=== PATIENT | male | born 1945 | race Caucasian/White ===

== ENCOUNTER 2017-01-04 20:23 | Inpatient (IN) | payer MEDICARE, BC ==
[~2017-01-04] VITALS: Ht 175.3 cm; Wt 114.8 kg
[2017-01-04 21:14] LABS: BASOPHILS % (AUTO) 0.9 % (0.0-2.0); EOSINOPHILS % (AUTO) 0.8 % (0.0-3.0); LYMPHOCYTES % (AUTO) 27.1 % (20.0-45.0); MEAN CORPUSCULAR HEMOGLOBIN 28.4 PG (27.0-31.0); MEAN CORPUSCULAR HGB CONC 32.4 G/DL (32.0-36.0); MEAN CORPUSCULAR VOLUME 88 FL (80-99); MEAN PLATELET VOLUME 8.2 FL (6.5-10.1); MONOCYTES % (AUTO) 11.1 % (1.0-10.0); PLATELET COUNT 154 K/UL (150-450); RED CELL DISTRIBUTION WIDTH 13.9 % (11.6-14.8); WHITE BLOOD COUNT 6.7 K/UL (4.8-10.8)
[2017-01-04 21:24] VITALS: BP 126/62
[2017-01-04 21:34] LABS: ALANINE AMINOTRANSFERASE 17 U/L (3-41); ALBUMIN/GLOBULIN RATIO 1.7 (1.0-2.7); ASPARTATE AMINO TRANSFERASE 24 U/L (5-40); CALCIUM 8.9 mg/dL (8.6-10.2); CARBON DIOXIDE 19 mEQ/L (20-30); CREATININE 1.2 mg/dL (0.7-1.2); HEMOLYSIS 6; TOTAL PROTEIN 6.6 g/dL (6.6-8.7)
[2017-01-04 21:35] LABS: ANION GAP 22 (5-15); CHLORIDE 101 mEQ/L (98-107); POTASSIUM 3.6 mEQ/L (3.4-4.9); SODIUM 142 mEQ/L (135-145); TROPONIN I < 0.30 ng/mL (<=0.30)
[2017-01-04 21:45] LABS: CKMB 3.2 ng/mL (< 6.7)
--- NOTE | 2017-01-04 23:07 | Emergency Room Report ---
History of Present Illness General Chief Complaint: General Complaint Source: Patient, Family Member, EMS Present Illness HPI 71 YOM BIBEMS with "new onset atrial fib and possible OD." However, when I saw patient and family, they endorse slurred speech at 730pm at dinner. Episode lasted "a few minutes." There was no facial droop or extremity weakness. No previous CVA, AMI. History of HTN, HLD. Has had DVT previously, used to be on xarelto. Doesnt taking ASA currently.Denies chest pain, SOB, abd pain, extremity weakness currently. 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 patient not sure if he has Atrial Fib , doesnt believe so. Has known PVD, ulcerations/shiny hairless lower extremities. Takes lasix for peripheral edema - denies history of CHF/ Allergies: Coded Allergies: No Known Allergies (Unverified , 01/04/17) Patient History Past Medical History: HTN, other - HLD Past Surgical History: none Pertinent Family History: none Social History: Denies: alcohol use, drug use, smoking Immunizations: UTD Reviewed Nursing Documentation: PMH: Agreed, PSxH: Agreed Nursing Documentation-PMH Past Medical History: No Stated History Review of Systems All Other Systems: negative except mentioned in HPI Physical Exam Vital Signs Date Time Temp Pulse Resp B/P Pulse Ox O2 Delivery O2 Flow Rate FiO2 01/04/17 20:23 69 16 126/62 98 Room Air 01/04/17 21:24 98.0 Sp02 EP Interpretation: reviewed, normal General Appearance: normal inspection, well appearing, no apparent distress, alert, GCS 15, non-toxic Head: normocephalic, atraumatic Eyes: bilateral eye EOMI, bilateral eye PERRL ENT: normal ENT inspection, hearing grossly normal, normal voice Neck: normal inspection, full range of motion, supple, no bony tend Respiratory: normal inspection, lungs clear, normal breath sounds, no respiratory distress, no retraction, no wheezing Cardiovascular #1: regular rate, rhythm, no edema Gastrointestinal: normal inspection Genitourinary: no CVA tenderness Musculoskeletal: normal inspection, back normal, normal range of motion, Adonay' s Sign negative Neurologic: normal inspection, alert, oriented x3, responsive, 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 Multiple areas of skin breakdown Medical Decision Making Diagnostic Impression: Primary Impression: Slurred speech Additional Impressions: Altered mental status Qualified Codes: R41.82 - Altered mental status, unspecified Atrial fibrillation Qualified Codes: I48.91 - Unspecified atrial fibrillation ER Course 71 YO M with ?new onset Atrial fib with ?TIA, now resolved. NIHSS 0. VSS. Afebrile. ECG is Atrial fib, RBBB labs: no leuks. H&H stable. Troponin 0. CXR normal CT Head: Endorsed to Dr Thomason for Dr Lopez for admission for new onset Atrial fib, TIA , secondary CVA prevention at 1127pm ASA given in ED Lipid panel pending EKG Diagnostic Results Rate: other - Atrial fib ST Segments: no acute changes ASA given to the pt in ED: No Rhythm Strip Diag. Results EP Interpretation: yes Rate: 73 Rhythm: no PVC's, no ectopy, other - Atrial fib Chest X-Ray Diagnostic Results EP Interpretation: Yes Findings: no consolidation, no effusion, no pneumothorax, no acute cardiopulmonary disease Number of Views: 1 Last Vital Signs Date Time Temp Pulse Resp B/P Pulse Ox O2 Delivery O2 Flow Rate FiO2 01/04/17 21:24 98.0 65 16 126/62 98 Room Air Status: improved Disposition: ADMITTED INPATIENT Condition: Serious Referrals: NON PHYSICIAN (PCP) CARL RIVERO M.D. Jan 04, 2017 23:07
[2017-01-04 23:30] VITALS: BP 147/84
[2017-01-04 23:45] LABS: CHOLESTEROL/HDL RATIO 3.7 (3.3-4.4)
[2017-01-04] MEDS ORDERED: Aspirin Baby 81mg ORAL ONE (23:45)
[2017-01-05] VITALS (8 sets, daily range): BP systolic 79–160; BP diastolic 79–99
[2017-01-05] MEDS ORDERED: Morphine Sulfate 4mg/ml Inj IVP ONE
[2017-01-05] MEDS ORDERED: Norco 5mg/325mg tab ORAL PRN (02:45)
[2017-01-05] MEDS ORDERED: Heparin 25,000u/D5W 500ml 500 ML IV SCH ×3 (02:45→04:34)
[2017-01-05 03:22] LABS: EOSINOPHILS % (AUTO) 1.1 % (0.0-3.0); LYMPHOCYTES % (AUTO) 32.2 % (20.0-45.0); MEAN CORPUSCULAR HEMOGLOBIN 27.9 PG (27.0-31.0); MEAN CORPUSCULAR VOLUME 87 FL (80-99); MEAN PLATELET VOLUME 8.4 FL (6.5-10.1); MONOCYTES % (AUTO) 7.1 % (1.0-10.0); NEUTROPHILS % (AUTO) 58.6 % (45.0-75.0); PLATELET COUNT 136 K/UL (150-450); RED BLOOD COUNT 4.82 M/UL (4.70-6.10); RED CELL DISTRIBUTION WIDTH 13.9 % (11.6-14.8); WHITE BLOOD COUNT 5.1 K/UL (4.8-10.8)
[2017-01-05] MEDS: Norco 10mg/325mg tab ORAL PRN ×4 (03:48→21:58)
[2017-01-05 03:54] LABS: TROPONIN I < 0.30 ng/mL (<=0.30)
[2017-01-05] MEDS ORDERED: Heparin 5000 units/ml inj IV ONE (04:15)
[2017-01-05] MEDS ORDERED: Aspirin Baby 81mg ORAL SCH (09:00)
[2017-01-05] MEDS ORDERED: Pneumococcal Vaccine 25mcg/0.5ml IM ONE (09:00)
[2017-01-05 09:47] LABS: TROPONIN I < 0.30 ng/mL (<=0.30)
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
--- NOTE | 2017-01-05 11:18 | Diagnostic Imaging Report ---
Indication: Chest pain Technique: One view of the chest Comparison: none Findings: The heart is borderline enlarged. Lungs and pleural spaces are clear Impression: Borderline cardiomegaly. No acute process
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
[2017-01-05] MEDS ORDERED: Eliquis 2.5mg tablet ORAL SCH (12:00)
[2017-01-05 12:20] LABS: HEMOGLOBIN A1C 5.4 % (< 6.0)
[2017-01-05 12:28] LABS: THYROID STIMULATING HORMONE 3.3 uIU/mL (0.300-4.500)
--- NOTE | 2017-01-05 12:43 | Diagnostic Imaging Report ---
APPROVED REPORT CPT Code: 10923 Symptoms Non-healing Ulcer : Right Comments: Screening BILATERAL: Common femoral artery waveform analysis is within normal limits at rest. Color flow duplex sonography reveals minimal calcification throughout the superficial femoral, popliteal and tibial arteries. There is no evidence of stenosis or occlusion within these segments. The tibioperoneal trunks were not well visualized. The posterior tibial, anterior tibial and dorsalis pedis arteries are patent. Doppler tibial artery waveform analysis is within normal limits, bilaterally.
--- NOTE | 2017-01-05 12:43 | Diagnostic Imaging Report ---
APPROVED REPORT CPT Code: 94055 Present Symptoms Lower Extremity Edema: Bilateral Comments: Screening BILATERAL: Imaging reveals a patent deep venous system bilaterally. There is no evidence of thrombus within the femoral, popliteal or tibial segments. Doppler indicates normal spontaneous flow within these segments.
[2017-01-05] MEDS: Bactrim DS (160mg/800mg) tab ORAL SCH ×2 (12:46→21:56)
--- NOTE | 2017-01-05 13:44 | Wound Care Consultation ---
Wound Assessment Wound Assessment #1: Wound Present on Admission: Yes New Wound: No Status Change of Wound: No Wound Location Body Site Modif: right, lower, anterior Wound Location Body Site: leg Wound Type: lesion-etiology unknown Jasmin Test: Does not Jasmin Edema Degree: 3+ deep indentation Wound Thickness: Full Thickness Wound Length: 3.5 Wound Width: 3.5 Wound Depth: utd Percent of Wound [place]/Red: 50 Percent of Wound Bed Yellow/Wh: 50 Wound Drainage Description: Serosanguineous Wound Drainage Amount: Scant Wound Drainage Odor: None/Absent Tissue Surrounding Wound: Edematous Wound General Appearance: Reddened, Draining Wound Assessment #2: Wound Number: #2 Wound Present on Admission: Yes New Wound: No Status Change of Wound: No Wound Location Body Site Modif: right, lower, medial Wound Location Body Site: leg Wound Type: lesion-etiology unknown Jasmin Test: Does not Jasmin Edema Degree: 3+ deep indentation Wound Thickness: Full Thickness Wound Length: 2.5 Wound Width: 2.5 Wound Depth: utd Percent of Wound [place]/Red: 50 Percent of Wound Bed Yellow/Wh: 50 Wound Drainage Description: Serosanguineous Wound Drainage Amount: Scant Tissue Surrounding Wound: Edematous Wound General Appearance: Reddened Wound Assessment #3: Wound Number: #3 Wound Present on Admission: Yes New Wound: No Status Change of Wound: No Wound Location Body Site Modif: right, lower, posterior Wound Location Body Site: leg Wound Type: lesion-etiology unknown Jasmin Test: Does not Jasmin Edema Degree: 3+ deep indentation Wound Thickness: Full Thickness Wound Length: 1.5 Wound Width: 1.5 Wound Depth: utd Percent of Wound [place]/Red: 50 Percent of Wound Bed Yellow/Wh: 50 Wound Drainage Description: Serosanguineous Wound Drainage Amount: Scant Wound Drainage Odor: None/Absent Tissue Surrounding Wound: Edematous Wound General Appearance: Reddened Wound Assessment #4: Wound Number: #4 Wound Present on Admission: Yes New Wound: No Status Change of Wound: No Wound Location Body Site Modif: left, lower, anterior Wound Location Body Site: leg Wound Type: scab Jasmin Test: Does not Jasmin Edema Degree: 3+ deep indentation Wound Thickness: Full Thickness Wound Length: 0.5 Wound Width: 0.5 Wound Depth: utd Percent of Wound Black/Brown: 100 Wound Drainage Amount: None Wound Drainage Odor: None/Absent Tissue Surrounding Wound: Edematous Wound General Appearance: Blackened Wound Comment #1 Right lower anterior leg open wound etiology unknown #2 Right lower medial leg open wound etiology unknown #3 Right lower posterior leg open wound etiology unknown #4 Left lower anterior leg dry scab etiology unknown #5 Left and right lower legs with dry skin and hyperpigmentation Recommendation -Keep clean and moist -Turn and reposition -Local wound care as ordered -Elevate both legs -Offload both heels -Optimize nutrition -Assess and f/u accordingly for any changes KAMRAN GRAJEDA RN Jan 05, 2017 13:44
[2017-01-05 16:02] LABS: TROPONIN I < 0.30 ng/mL (<=0.30)
--- NOTE | 2017-01-05 20:46 | Consultation ---
Consult Note Consult Note Cardiology/ Cardiac EP Full note dictated # [id number] REE LUJAN Jan 05, 2017 20:46
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
[2017-01-05] MEDS: Eliquis 2.5mg tablet ORAL SCH (21:57)
[2017-01-05] MEDS: Vitamin A&D Oint 2oz Tube TOPIC SCH (21:59)
[2017-01-06] VITALS: BP 145/82
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
[2017-01-06] MEDS: Norco 10mg/325mg tab ORAL PRN ×2 (03:42→09:32)
[2017-01-06 04:00] VITALS: BP 140/68
[2017-01-06 08:00] VITALS: BP 135/74
[2017-01-06] MEDS: Vitamin A&D Oint 2oz Tube TOPIC SCH (09:24)
[2017-01-06] MEDS: Bactrim DS (160mg/800mg) tab ORAL SCH (09:25)
[2017-01-06] MEDS: Eliquis 2.5mg tablet ORAL SCH (09:26)
[2017-01-06] MEDS ORDERED: ATENOLOL50 MG ORAL (11:31)
[2017-01-06] MEDS ORDERED: ELIQUIS2.5 MG ORAL (11:31)
[2017-01-06] MEDS ORDERED: NORVASC10 MG ORAL (11:31)
[2017-01-06] MEDS ORDERED: ATORVASTATIN CA40 MG ORAL (11:31)
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
[2017-01-06 12:00] VITALS: BP 145/86
--- NOTE | 2017-01-07 12:40 | Diagnostic Imaging Report ---
APPROVED REPORT CPT Code: 78634 Vascular Symptoms Comments: AMS Doppler Spectral Velocity Analysis RightLeft RIGHT SIDE: CCA - Imaging reveals no significant plaque in the common carotid artery. ICA The Doppler signal indicates the degree of stenosis is mild (30-40%) in the internal carotid artery, and minimal (30%) in the external carotid artery. VERTEBRAL - The vertebral artery is patent, without evidence of stenosis or steal. LEFT SIDE: CCA - Imaging reveals no significant plaque in the common carotid artery. ICA The Doppler signal indicates the degree of stenosis is mild (30-40%) in the internal carotid artery, and minimal (20%) in the external carotid artery. VERTEBRAL - The vertebral artery is patent, without evidence of stenosis or steal.
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
[2017-01-08 10:10] LABS: VITAMIN D 25-OH TOTAL 45 ng/mL (.)
--- NOTE | 2017-01-08 20:35 | Cardiology Report ---
APPROVED REPORT EXAM: Two-dimensional and M-mode echocardiogram with Doppler and color Doppler. INDICATION Atrial Fibrillation M-Mode DIMENSIONS IVSd1.3 (0.7-1.1cm)Left Atrium (MM)5.2 (1.6-4.0cm) LVDd5.6 (3.5-5.6cm)Aortic Root3.9 (2.0-3.7cm) PWd1.6 (0.7-1.1cm)Aortic Cusp Exc.1.8 (1.5-2.0cm) LVDs2.6 (2.5-4.0cm) PWs2.7 cm Normal left ventricular systolic function and wall motion. Left ventricular ejection fraction estimated to be 55-60 %. Mild left ventricular hypertrophy. Anterior Echo-free space, may be due to pericardial fat or effusion. No evidence of pericardial effusion. Mild left ventricular enlargement. Mild left atrial enlargement. Moderate right atrial enlargement. Moderate right ventricular enlargement. Mild focal aortic valve sclerosis with adequate cusp excursion. Moderately thickened mitral valve leaflets with normal excursion. Mild mitral annulus and aortic root calcification. Pulmonic valve not well visualized. Normal tricuspid valve structure. IVC dilated at 2.1cm with physiologic collapse. A color flow and spectral Doppler study was performed and revealed: Mild aortic regurgitation. Mild mitral regurgitation. Mitral inflow velocities could not be determined due to A-FIB. Trace tricuspid regurgitation. Tricuspid systolic velocities suggests peak right ventricular systolic pressure cannot be mneasured Trace pulmonic regurgitation present.
--- NOTE | 2017-01-13 20:56 | Discharge Summary ---
Discharge Summary Hospital Course Date of Admission Jan 04, 2017 at 21:28 Date of Discharge Jan 06, 2017 at 14:10 Admitting Diagnosis new onset Afib HPI Dion Ho is a 71 year old male who was admitted on Jan 04, 2017 at 21:28 for New Onset Atrial Fibrillation Hospital Course [id number] Discharge Discharge Disposition Patient was discharged to Home (01) Discharge Diagnoses: Sheila Reynoso NP Jan 13, 2017 20:56
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
== END 2017-01-06 14:10 | disposition home or self-care (01) | DRG 69 ==
LOC: EDBD 20:23 → EMR 21:12 → 2E 21:28 → EDBEDREQ 22:35 → 2E 01-05 02:22
DX: G45.9 Transient cerebral ischemic attack, unspecified (principal); I48.91 Unspecified atrial fibrillation; D64.9 Anemia, unspecified; I10 Essential (primary) hypertension; E78.5 Hyperlipidemia, unspecified; S81.809A Unspecified open wound, unspecified lower leg, initial encounter; I83.12 Varicose veins of left lower extremity with inflammation; I83.11 Varicose veins of right lower extremity with inflammation; Z23 Encounter for immunization; Z98.84 Bariatric surgery status; Z86.718 Personal history of other venous thrombosis and embolism; R47.81 Slurred speech; R41.3 Other amnesia; I45.10 Unspecified right bundle-branch block; Z87.828 Personal history of other (healed) physical injury and trauma; X58.XXXA Exposure to other specified factors, initial encounter; Y92.9 Unspecified place or not applicable
CPT/HCPCS: 36415; 70450; 71010; 80053; 80061; 82306; 82550; 82553; 82607; 82746; 83036; 84443; 84484; 85025; 85651; 85730; 86592; 87070; 87205; 90732; 93005; 93306; 93880; 93925; 93970; 95819; J2405